=== PATIENT | female | born 1960 ===

== ENCOUNTER 2017-05-07 08:50 | Day surgery (SDC) | payer OTHER ==
[2017-04-27 12:55] VITALS: BMI 27.8
[~2017-05-07 08:50] MED LIST: Acetaminophen-Codeine 300/30 mg Tab PO PRN; Dextrose 5%/0.45% NS 1,000 ML IV SCH
[2017-05-07] MEDS ORDERED: Propofol 10 mg/ml Inj (20 ML) ONE (11:32)
[2017-05-07] MEDS ORDERED: Midazolam 2 MG/2 ML VIAL ONE (11:33)
[2017-05-07] MEDS ORDERED: ceFAZolin IV 2 gm in Dextrose 0 GM/0 ML BAG IVPB ONE (11:39)
[2017-05-07] MEDS ORDERED: Lactated Ringer's 1,000 ML IV ONE ×2 (11:39)
[2017-05-07] MEDS ORDERED: ceFAZolin IV 1 gm in Dextrose 1 GM/50 ML BAG IVPB ONE (11:39)
[2017-05-07] MEDS ORDERED: HYDROmorphone 0.5 mg/0.5 ml ISec IVP PRN (12:00)
[2017-05-07 13:23] VITALS: O2SAT 100
[2017-05-07 13:57] VITALS: BP 124/73; PULSE 65; RESP 18; TEMP 97.9
--- NOTE | 2017-05-07 14:18 | OP ---
PROCEDURE DATE: 05/07/2017 PREOPERATIVE DIAGNOSIS: Possible left pyriform sinus mass. POSTOPERATIVE DIAGNOSIS: Possible left pyriform sinus mass. PROCEDURE: Direct laryngoscopy and biopsy. SIGNIFICANT FINDINGS: No masses, no lesions. DESCRIPTION OF PROCEDURE: The patient was brought into the room, placed in a supine position. Anesthesia was initiated through ET tube. Shoulder roll was placed, neck extended. The patient was draped in usual manner. Tooth scrub was placed over the upper teeth in order to protect them and was removed at the end of the case. Direct laryngoscope was inserted into the oral cavity, passed to the oropharynx and hypopharynx. The base of tongue, vallecula, epiglottis, AE folds, false cords, true cords, pyriform sinuses were brought into view as well as the pharyngeal osborne. No masses or lesions were noted. Multiple biopsies of left pyriform sinus were taken. Bleeding was controlled using Coblator irrigation. Direct laryngoscope was removed. Tooth scrub was removed. The patient was taken off anesthesia and taken to recovery room in stable manner. Nazario Mccallum MD
== END 2017-05-07 13:58 | disposition home or self-care (01) ==
LOC: C.SDS 08:50
PROVIDERS: ATTEND Otolaryngology
DX: R22.1 Localized swelling, mass and lump, neck (principal); I10 Essential (primary) hypertension; J45.909 Unspecified asthma, uncomplicated; J04.0 Acute laryngitis
CPT/HCPCS: 31535; 88305; J0690; J2250; J2704; J3010; J7120